=== PATIENT | female | born 1965 | race Caucasian/White ===

== ENCOUNTER 2020-01-01 09:29 | Emergency (ER) | payer BC, SELFPAY ==
[2020-01-01 09:31] VITALS: BP 164/88; PULSE 67; RESP 16; TEMP 36.4; O2SAT 99
--- NOTE | 2020-01-01 10:19 | ED.GENADULT ---
HPI - General Adult General Chief complaint: Wound/Laceration Stated complaint: pos abcess on ear History of Present Illness HPI narrative: R patient is a 54-year-old female presents to the urgent care via POV for evaluation of a skin problem that began 4 days ago. Additionally, she reports left ear with pain, swelling, erythema, and drainage. She states the drainage was pus . No improvement with antibiotic ointment. She believes hot compresses helped. Symptoms worsen with touch. Denies injury. Pertinent negatives fever, chills, sweats, malaise, poor p.o. intake, change in appetite, headache, LOC, dizziness, streaking, numbness, tingling, loss of sensation, foreign body sensation, deformity, sob, chest pain, and heart palpitations/murmurs. Related Data Allergies Allergy/AdvReac Type Severity Reaction Status Date / Time No Known Allergies Allergy Verified 01/01/20 09:41 Review of Systems Review of Systems: Narrative: All other systems reviewed and are negative PMFSH Social History Social History Smoking status: Never smoker Alcohol intake: current Comments I have reviewed and agree with the patient's past medical, surgical, social, and family hx as documented by the RN. There is no relevant family history pertinent to the presenting complaint. Exam Narrative: Exam Narrative: GENERAL: Well-appearing, well-nourished, and in no acute distress. HEAD: Normocephalic, atraumatic. No facial swelling appreciated. EYES: PERRLA and EOMI. No evidence of erythema, swelling, or drainage. ENT: Nares clear, no rhinorrhea or epistaxis.Mucous membranes moist and pink. Uvula is midline without erythema and swelling. No evidence of obstruction, petechial rash, cobblestoning, lesions, ulcers, erythema, swelling, exudates, peritonsillar abscess, tenting, or drooling. Breath odor and voice normal. NECK: Supple. No Lymphadenopathy or nuchal rigidity appreciated. CHEST: Bilateral lung yee are clear to auscultation. No respiratory distress. No evidence of cough or pleuritic cp upon examination. HEART: Regular rate and rhythm. No murmur, gallop, or rub heard. EXTREMITIES: Normal range of motion. No edema. SKIN: Warm, dry. Small abscess with mild cellulitis located on left external ear. Moderate induration appreciated. Sensation normal. No evidence of streaking, abrasions/lacerations, petechiae, hematoma, contusion, drainage, or bleeding. NEURO: No focal deficits. Alert and oriented x3. SPECIAL OBSERVATIONS: Smiling. Laughing. No evidence of discomfort. Course Course Emergency Course: Abscess too indurated to drain. Vital Signs Vital signs: Vital Signs Temperature 97.6 F 01/01/20 09:31 Pulse Rate 67 01/01/20 09:31 Respiratory Rate 16 01/01/20 09:31 Blood Pressure 164/88 H 01/01/20 09:31 Pulse Oximetry 99 01/01/20 09:31 Temperature 97.6 F 01/01/20 09:31 Pulse Rate 67 01/01/20 09:31 Respiratory Rate 01/01/20 09:31 Blood Pressure 164/88 H 01/01/20 09:31 Pulse Oximetry 99 01/01/20 09:31 Due to an elevated blood pressure, I had a detailed discussion with the patient and/or guardian regarding the need for follow-up with their primary care provider within the next 3-4 days. Patient verbalized understanding and agreed. Medical Decision Making Vital Signs Vital Signs: Vital Signs Temperature 97.6 F 01/01/20 09:31 Pulse Rate 67 01/01/20 09:31 Respiratory Rate 16 01/01/20 09:31 Blood Pressure 164/88 H 01/01/20 09:31 Pulse Oximetry 99 01/01/20 09:31 Temperature 97.6 F 01/01/20 09:31 Pulse Rate 67 01/01/20 09:31 Respiratory Rate 16 01/01/20 09:31 Blood Pressure 164/88 H 01/01/20 09:31 Pulse Oximetry 99 01/01/20 09:31 Critical Care Time Critical Care Time Critical Care Time: No Discharge Plan Discharge Clinical Impression: Abscess Patient Disposition: Home, Self-Care Condition: Stab
== END 2020-01-01 10:31 | disposition home or self-care (01) ==
PROVIDERS: Emergency Provider Nurse Practitioner Family; PCP Emergency Medicine
DX: H60.02 Abscess of left external ear (principal)
CPT/HCPCS: 99213; G0463